=== PATIENT | male | born 1975 | race Caucasian/White ===

== ENCOUNTER 2016-09-22 22:17 | Inpatient (IN) | payer OTHER ==
[~2016-09-22] VITALS: Ht 170.2 cm; Wt 87.1 kg
[2016-09-23 00:22] LABS: HEMOGLOBIN 12.2 gm/dl (14.0-17.5); RED BLOOD COUNT 3.52 M/UL (4.20-5.50); WHITE BLOOD COUNT 12.1 K/UL (4.5-11.0)
[2016-09-23 00:38] LABS: BUN/CREATININE RATIO 8 (0-10)
[2016-09-24 06:06] LABS: HEMOGLOBIN 10.6 gm/dl (14.0-17.5)
[2016-09-24 06:12] LABS: RED BLOOD COUNT 3.16 M/UL (4.20-5.50)
[2016-09-24 06:20] LABS: BUN/CREATININE RATIO 7 (0-10)
[2016-09-25 07:37] LABS: BUN/CREATININE RATIO 5 (0-10)
[2016-09-25] MEDS ORDERED: FOLIC ACID 1 MG1 MG PO (13:44)
[2016-09-25] MEDS ORDERED: THERAGRAN M TAB1 EA PO (13:44)
[2016-09-25] MEDS ORDERED: HABITROL 14 MG P1 EA TD (13:45)
[2016-09-25] MEDS ORDERED: PROTONIX 40 MG40 M1 PO (13:46)
== END 2016-09-25 14:39 | disposition home or self-care (01) | DRG 871 ==
LOC: ER1 22:17 → M/S 09-23 04:00 → ZEROF 09-23 04:00 → M/S 09-23 09:02
PROVIDERS: Family Medicine; Hospitalist; ADMIT Internal Medicine
DX: A41.9 Sepsis, unspecified organism (principal); K65.2 Spontaneous bacterial peritonitis; F10.239 Alcohol dependence with withdrawal, unspecified; K27.9 Peptic ulcer, site unspecified, unspecified as acute or chronic, without hemorrhage or perforation; K76.89 Other specified diseases of liver; K52.9 Noninfective gastroenteritis and colitis, unspecified; K21.9 Gastro-esophageal reflux disease without esophagitis; K70.0 Alcoholic fatty liver; K70.11 Alcoholic hepatitis with ascites; K70.31 Alcoholic cirrhosis of liver with ascites; D53.9 Nutritional anemia, unspecified; Z88.3 Allergy status to other anti-infective agents; Z88.0 Allergy status to penicillin; Z80.42 Family history of malignant neoplasm of prostate
CPT/HCPCS: 36415; 71010; 80048; 80053; 80074; 80076; 81001; 82140; 83605; 83690; 83735; 84132; 85025; 85027; 85610; 85730; 87040; 87086; 96374; 96375; 99285; C9113; G0480; J1956; J2060; J2270; J2405; J2550; J3411; J7030; J7050; Q9962